=== PATIENT | female | born 1960 | race Hispanic/Latino ===

== ENCOUNTER 2017-07-20 06:53 | Emergency (ER) | payer BC ==
[2017-07-20 07:15] VITALS: BMI 39.1
[2017-07-20] MEDS ORDERED: Albuterol-Ipratrop 3 mg / 0.5 (3 ml) UD IH STA (07:20)
[2017-07-20 07:21] VITALS: TEMP 97.8
--- NOTE | 2017-07-20 07:23 | ED PDOC ---
Arrival/HPI - General Time Seen by Provider: 07/20/17 07:05 - History of Present Illness Narrative History of Present Illness (Text): 07/20/17 07:21 Patient is a 57 y/o F with 2 day history of subjective fever and nonproductive cough. She reports that she woke up this morning and felt like she was wheezing so she came to the ED for further evaluation. Denies chest pain. Denies vomiting, diarrhea, or abdominal pain. Past Medical History - Infectious Disease Hx of Infectious Diseases: None - Tetanus Immunization Tetanus Immunization: Unknown - Cardiac Hx Cardiac Disorders: No - Pulmonary Hx Respiratory Disorders: No - Neurological Hx Neurological Disorder: No - HEENT Hx HEENT Disorder: No - Renal Hx Renal Disorder: No - Endocrine/Metabolic Hx Endocrine Disorders: No - Hematological/Oncological Hx Anemia: Yes - Integumentary Hx Dermatological Disorder: No - Musculoskeletal/Rheumatological Hx Musculoskeletal Disorders: No Hx Falls: No - Gastrointestinal Hx Crohn's Disease: Yes (since 1987) - Genitourinary/Gynecological Hx Genitourinary Disorders: No - Psychiatric Hx Psychophysiologic Disorder: No Hx Depression: No Hx Emotional Abuse: No Hx Physical Abuse: No Hx Substance Use: No - Surgical History Hx Appendectomy: Yes Hx Cholecystectomy: Yes Hx Hysterectomy: Yes - Anesthesia Hx Anesthesia: Yes Hx Anesthesia Reactions: No Hx Malignant Hyperthermia: No - Suicidal Assessment Feels Threatened In Home Enviroment: No Family/Social History Family/Social History: No Known Family HX Smoking Status: Never Smoked Hx Alcohol Use: No Hx Substance Use: No Hx Substance Use Treatment: No Allergies/Home Meds Allergies/Adverse Reactions: Allergies iodine Allergy (Verified 07/20/17 07:15) RASH Home Medications: Home Meds Medication Instructions Recorded Confirmed Mesalamine [Pentasa] 500 mg PO QID 08/01/12 07/20/17 Review of Systems - Review of Systems Constitutional: Fevers (subjective). absent: Fatigue, Weight Change Eyes: absent: Vision Changes ENT: absent: Hearing Changes Respiratory: Cough, Wheezing. absent: SOB, Sputum Cardiovascular: absent: Chest Pain, Palpitations, Edema, Calf Pain, GARCÍA, Orthopnea, Syncope Gastrointestinal: absent: Abdominal Pain, Constipation, Diarrhea, Nausea, Vomiting Genitourinary Female: absent: Dysuria Neurological: absent: Headache, Dizziness, Focal Weakness, Gait Changes, Speech Changes, Facial Droop, Disequilibrium Psychiatric: absent: Anxiety Physical Exam Vital Signs Temp Pulse Resp BP Pulse Ox 07/20/17 09:05 99 H 20 152/94 H 95 07/20/17 07:16 97.8 F 103 H 18 193/83 H 94 L Temperature: Afebrile Blood Pressure: Normal Pulse: Regular Respiratory Rate: Normal Appearance: Positive for: Well-Appearing, Non-Toxic, Comfortable Pain Distress: None Mental Status: Positive for: Alert and Oriented X 3, other (coughing during exam ) - Systems Exam Head: Present: Atraumatic, Normocephalic Pupils: Present: PERRL Extroacular Muscles: Present: EOMI Conjunctiva: Present: Normal Mouth: Present: Moist Mucous Membranes Pharnyx: No: ERYTHEMA, EXUDATE Nose (Internal): Present: Rhinorrhea (clear) Neck: Present: Normal Range of Motion. No: Meningeal Signs Respiratory/Chest: Present: Clear to Auscultation, Good Air Exchange. No: Respiratory Distress, Accessory Muscle Use Cardiovascular: Present: Regular Rate and Rhythm, Normal S1, S2. No: Murmurs Abdomen: No: Tenderness, Distention, Rebound, Guarding Upper Extremity: Present: Normal Inspection Lower Extremity: Present: Normal Inspection Neurological: Present: GCS=15, CN II-XII Intact, Speech Normal Psychiatric: Present: Alert, Oriented x 3 Medical Decision Making ED Course and Treatment: 07/20/17 09:45 Presentation is consistent with uri. Cxray negative. She reports improvement of symptoms after tessalon perles and duonebs. - RAD Interpretation Radiology Orders: 07/20/17 07:20 CHEST TWO VIEWS (PA/LAT) [RAD] Stat - Medication Orders Current Medication Orders: Discontinued Medications Albuterol/Ipratropium (Duoneb 3 Mg/0.5 Mg (3 Ml) Ud) 3 ml IH STAT STA Stop: 07/20/17 07:21 Last Admin: 07/20/17 07:31 Dose: 3 ml Benzonatate (Tessalon Perles) 100 mg PO STAT STA Stop: 07/20/17 08:13 Last Admin: 07/20/17 09:04 Dose: 100 mg Ketorolac Tromethamine (Toradol) 15 mg IM STAT STA Stop: 07/20/17 07:21 Last Admin: 07/20/17 07:30 Dose: 15 mg MAR Pain Assessment Document 07/20/17 07:30 [facility] (Rec: 07/20/17 07:31 [facility] [id number]) Pain Reassessment Is this a pain reassessment? No Sleep Is patient sleeping during reassessment? No Presence of Pain Presence of Pain Yes Pain Scale Used Pain Scale Used Numeric Location Left, Right or Bilateral Bilateral Pain Location Body Site Abdomen Description Description Constant Intensity of Pain at present 7 Pain Behavior Facial Grimacing Aggravating Factors Changing Position Alleviating Factors/Management Position Change Techniques Alleviating Factors Medication IM Administration Charges Document 07/20/17 07:30 [facility] (Rec: 07/20/17 07:31 [facility] [id number]) Injection Site MAR Injection Site Left Deltoid Charges for Administration # of IM Administrations 1 Disposition/Present on Arrival - Present on Arrival Any Indicators Present on Arrival: No History of DVT/PE: No History of Uncontrolled Diabetes: No Urinary Catheter: No History of Decub. Ulcer: No History Surgical Site Infection Following: CABG - Mediastinitis, None - Disposition Have Diagnosis and Disposition been Completed?: Yes Diagnosis: Cough Disposition: HOME/ ROUTINE Disposition Time: 08:47 Patient Plan: Discharge Condition: GOOD Discharge Instructions (ExitCare): Cough in Adults, Viral Upper Respiratory Infection, Adult (DC), Cough, Runny Nose, and the Common Cold (DC) Additional Instructions: Follow-up with PMD within 2 days. Use cough medication as needed. Return to ED if condition worsens Prescriptions: Albuterol HFA [Ventolin HFA 90 mcg/actuation (8 g)] 2 puff IH [id number] #1 puff Benzonatate [Tessalon Perles] 100 mg PO TID PRN #20 sgl PRN Reason: Cough Forms: [employer] (Bengali)
--- NOTE | 2017-07-20 08:16 | RAD ---
HISTORY: cough COMPARISON: No prior. TECHNIQUE: Chest PA and lateral FINDINGS: LUNGS: No active pulmonary disease. PLEURA: No significant pleural effusion identified. No pneumothorax apparent. CARDIOVASCULAR: Normal. OSSEOUS STRUCTURES: No significant abnormalities. VISUALIZED UPPER ABDOMEN: Normal. OTHER FINDINGS: None. IMPRESSION: No active disease.
[2017-07-20 09:06] VITALS: BP 152/94; PULSE 99; RESP 20; O2SAT 95
== END 2017-07-20 09:06 | disposition home or self-care (01) ==
LOC: ED 06:53
DX: R05 Cough (principal)
CPT/HCPCS: 71046; 96372; 99282; J1885

== ENCOUNTER 2017-09-20 10:16 | Inpatient (IN) | payer BC ==
[2017-09-20] MEDS ORDERED: Sodium Chloride 0.9% 1,000 ML IV STA (10:41)
--- NOTE | 2017-09-20 10:47 | ED PDOC ---
Arrival/HPI - General Chief Complaint: Abdominal Pain Time Seen by Provider: 09/20/17 10:41 Historian: Patient - History of Present Illness Narrative History of Present Illness (Text): 09/20/17 10:43 57yo morbidly obese female with pmhx of crohns' present with complaint of right flank pain and associated nausea nad vomiting x weeks. States she was diagnosed with kidney stones last month and was scheduled for lithotripsy, but it was cancelled. states she came to the ED because she couldn't take the pain and for the vomiting. she denies fever, chills, urinary symptoms, diarrhea, constipation , sick contact ,travel, any other complaint. Past Medical History - Provider Review Nursing Documentation Reviewed: Yes - Infectious Disease Hx of Infectious Diseases: None - Tetanus Immunization Tetanus Immunization: Unknown - Cardiac Hx Cardiac Disorders: No - Pulmonary Hx Respiratory Disorders: No - Neurological Hx Neurological Disorder: No - HEENT Hx HEENT Disorder: No - Renal Hx Renal Disorder: Yes Hx Neurogenic Bladder: Yes - Endocrine/Metabolic Hx Endocrine Disorders: No - Hematological/Oncological Hx Blood Disorders: Yes Hx Anemia: Yes - Integumentary Hx Dermatological Disorder: No - Musculoskeletal/Rheumatological Hx Musculoskeletal Disorders: No - Gastrointestinal Hx Gastrointestinal Disorders: Yes Hx Crohn's Disease: Yes - Genitourinary/Gynecological Hx Genitourinary Disorders: No - Psychiatric Hx Psychophysiologic Disorder: No Hx Substance Use: No - Surgical History Hx Appendectomy: Yes Hx Cholecystectomy: Yes Hx Hysterectomy: Yes - Anesthesia Hx Anesthesia: Yes Hx Anesthesia Reactions: No Hx Malignant Hyperthermia: No - Suicidal Assessment Feels Threatened In Home Enviroment: No Family/Social History - Physician Review Nursing Documentation Reviewed: Yes Family/Social History: Unknown Family HX Smoking Status: Never Smoked Hx Alcohol Use: No Hx Substance Use: No Hx Substance Use Treatment: No Allergies/Home Meds Allergies/Adverse Reactions: Allergies iodine Allergy (Verified 09/20/17 10:28) RASH Home Medications: Home Meds Medication Instructions Recorded Confirmed Mesalamine [Pentasa] 500 mg PO QID 08/01/12 09/20/17 Review of Systems - Physician Review All systems were reviewed & negative as marked: Yes - Review of Systems Constitutional: Normal Eyes: Normal ENT: Normal Respiratory: Normal Cardiovascular: Normal Gastrointestinal: Abdominal Pain, Nausea, Vomiting. absent: Constipation, Diarrhea, Hematochezia, Hematemesis Genitourinary Female: Normal Musculoskeletal: Normal Skin: Normal Neurological: Normal Endocrine: Normal Hemo/Lymphatic: Normal Psychiatric: Normal Physical Exam Vital Signs Reviewed: Yes Vital Signs Temp Pulse Resp BP Pulse Ox 09/20/17 18:51 98.0 F 89 19 129/88 99 09/20/17 16:31 98.1 F 82 18 130/87 97 09/20/17 10:39 98.5 F 84 19 137/84 95 Temperature: Afebrile Blood Pressure: Normal Pulse: Regular Respiratory Rate: Normal Appearance: Positive for: Well-Appearing, Non-Toxic, Comfortable Pain Distress: None Mental Status: Positive for: Alert and Oriented X 3 - Systems Exam Head: Present: Atraumatic, Normocephalic Pupils: Present: PERRL Extroacular Muscles: Present: EOMI Conjunctiva: Present: Normal Mouth: Present: Moist Mucous Membranes Neck: Present: Normal Range of Motion Respiratory/Chest: Present: Clear to Auscultation, Good Air Exchange. No: Respiratory Distress, Accessory Muscle Use Cardiovascular: Present: Regular Rate and Rhythm, Normal S1, S2. No: Murmurs Abdomen: Present: Tenderness (Right flank ), Other (Soft). No: Distention, Peritoneal Signs, Rebound, Guarding, McBurney's Point Tender, Rovsing's Sign Present Back: Present: Normal Inspection Upper Extremity: Present: Normal Inspection. No: Cyanosis, Edema Lower Extremity: Present: Normal Inspection. No: Edema Neurological: Present: GCS=15, CN II-XII Intact, Speech Normal Skin: Present: Warm, Dry, Normal Color. No: Rashes Psychiatric: Present: Alert, Oriented x 3, Normal Insight, Normal Concentration Medical Decision Making ED Course and Treatment: 09/20/17 20:27 PT presented for stated history. Her pain was controlled in ED. She was hemodynamically stable. Lab was ordered and reviewed. Abdominal CT IMPRESSION: Stable bilateral nonobstructing renal calculi larger on the right. No evidence of ureteral calculi. . Findings suggestive of ascending and transverse colitis. Hepato splenomegaly again noted. Interval mild increase in the size of the left adrenal nodule since the previous exam Case was DW Dr. Ding and he recommends admission. PT's stone increased from what it was last night and she didn't have hydro, in the previous CT. States he will put a stent tomorrow. Colitis was noted on the CT and Rocephin/glagyl was ordered CXR NAD Result and plan was DW the pt and she agreed. - Lab Interpretations Lab Results: 09/20/17 11:34 09/20/17 13:30 Lab Results 09/20/17 13:30: PT 14.5, INR 1.26, APTT 30.8 09/20/17 13:30: Sodium 143, Potassium 3.6, Chloride 105, Carbon Dioxide 25, Anion Gap 17, BUN 8, Creatinine 0.9, Est GFR ( Amer) > 60, Est GFR (Non- Af Amer) > 60, Random Glucose 100, Calcium 9.4, Magnesium 1.8, Total Bilirubin 1.4 H, AST 46 H, ALT 39, Alkaline Phosphatase 118, Total Protein 9.1 H, Albumin 4.5, Globulin 4.6, Albumin/Globulin Ratio 1.0 L, Lipase 90 09/20/17 11:34: WBC 10.6, RBC 6.07, Hgb 11.2 L, Hct 35.1 L, MCV 57.8 L, MCH 18.5 L, MCHC 31.9, RDW 18.2 H, Plt Count 216, Gran % 74.6 H, Lymph % (Auto) 18.6 L, [place] % (Auto) 5.6, Eos % (Auto) 0.9 L, Baso % (Auto) 0.3, Gran # 7.91 H , Lymph # (Auto) 2.0, [place] # (Auto) 0.6, Eos # (Auto) 0.1, Baso # (Auto) 0.03 09/20/17 10:50: Urine Color Yellow, Urine Appearance Clear, Urine pH 6.5, Ur Specific [place] 1.020, Urine Protein 100 H, Urine Glucose (UA) Negative, Urine Ketones Negative, Urine Blood Large H, Urine Nitrate Negative, Urine Bilirubin Negative, Urine Urobilinogen 0.2, Ur Leukocyte Esterase Small H, Urine RBC 20 - 25, Urine WBC 5 - 10, Ur Epithelial Cells 4 - 5, Urine Bacteria Mod, Hyaline Casts 0 - 2, Coarse Granular Casts Trace H, Urine Other [place]yeast - RAD Interpretation Radiology Orders: 09/20/17 10:41 ABD & PELVIS W/O PO OR IV CONT [CT] Stat - Medication Orders Current Medication Orders: Sodium Chloride (Sodium Chloride 0.9%) 1,000 mls @ 75 mls/hr IV .[id number] LIZ Stop: 09/21/17 19:54 Last Admin: 09/20/17 18:39 Dose: 75 mls/hr eMAR Start Stop Document 09/20/17 18:39 [email or web address] (Rec: 09/20/17 18:39 [email or web address] [id number]) Intravenous Solution Start Date 09/20/17 Start Time 18:39 End Date 09/20/17 Mesalamine (Pentasa) 500 mg PO QID LIZ Morphine Sulfate (Morphine) 4 mg IVP Q4H PRN PRN Reason: Pain, severe (8-10) Oxycodone/Acetaminophen (Percocet 5/325 Mg Tab) 1 tab PO Q4 PRN PRN Reason: Pain, moderate (4-7) Stop: 09/23/17 20:01 Discontinued Medications Sodium Chloride (Sodium Chloride 0.9%) 1,000 mls @ 1,000 mls/hr IV .Q1H STA Stop: 09/20/17 11:40 Last Admin: 09/20/17 11:36 Dose: 1,000 mls/hr eMAR Start Stop Document 09/20/17 11:36 [email or web address] (Rec: 09/20/17 11:37 [email or web address] [id number]) Intravenous Solution Start Date 09/20/17 Start Time 11:36 End Date 09/20/17 Metronidazole (Flagyl) 500 mg in 100 mls @ 100 mls/hr IVPB STAT STA PRN Reason: Protocol Stop: 09/20/17 17:17 Last Admin: 09/20/17 18:39 Dose: 100 mls/hr eMAR Start Stop Document 09/20/17 18:39 [email or web address] (Rec: 09/20/17 18:40 [email or web address] [id number]) Intravenous Solution Start Date 09/20/17 Start Time 18:40 Ceftriaxone Sodium (Rocephin 1 Gram Ivpb) 1 gm in 100 mls @ 200 mls/hr IVPB STAT STA PRN Reason: Protocol Stop: 09/20/17 16:46 Last Admin: 09/20/17 16:40 Dose: 200 mls/hr eMAR Start Stop Document 09/20/17 16:40 [email or web address] (Rec: 09/20/17 18:38 [email or web address] [id number]) Intravenous Solution Start Date 09/20/17 Start Time 18:38 End Date 09/20/17 Ketorolac Tromethamine (Toradol) 30 mg IVP STAT STA Stop: 09/20/17 10:42 Last Admin: 09/20/17 11:35 Dose: 30 mg MAR Pain Assessment Document 09/20/17 11:35 [email or web address] (Rec: 09/20/17 11:35 [email or web address] [id number]) Pain Reassessment Is this a pain reassessment? No Sleep Is patient sleeping during reassessment? No Presence of Pain Presence of Pain Yes Pain Scale Used Pain Scale Used Numeric Location Left, Right or Bilateral Right Upper or Lower Lower Pain Location Body Site Back Description Description Constant Intensity of Pain at present 5 Pain Behavior Facial Grimacing Aggravating Factors Changing Position Alleviating Factors/Management Position Change Techniques Alleviating Factors Medication IVP Administration Document 09/20/17 11:35 [email or web address] (Rec: 09/20/17 11:35 [email or web address] [id number]) Charges for Administration # of IVP Administrations 1 Ondansetron HCl (Zofran Inj) 4 mg IVP STAT STA Stop: 09/20/17 10:42 Last Admin: 09/20/17 11:35 Dose: 4 mg IVP Administration Document 09/20/17 11:35 [email or web address] (Rec: 09/20/17 11:36 [email or web address] [id number]) Charges for Administration # of IVP Administrations 1 Disposition/Present on Arrival - Present on Arrival Any Indicators Present on Arrival: No History of DVT/PE: No History of Uncontrolled Diabetes: No Urinary Catheter: No History of Decub. Ulcer: No History Surgical Site Infection Following: None - Disposition Have Diagnosis and Disposition been Completed?: Yes Diagnosis: Renal stone, Colitis, Hydronephrosis Disposition: HOSPITALIZED Disposition Time: 15:40 Patient Plan: Admission Patient Problems: Current Active Problems Problem Status Onset Colitis Acute Hydronephrosis Acute Renal stone Acute Condition: STABLE
[2017-09-20 11:05] LABS: PH,URINE 6.5 (4.7-8.0); URINE BILIRUBIN NEGATIVE (NEGATIVE); URINE BLOOD LARGE (NEGATIVE); URINE GLUCOSE (UA) NEGATIVE (NEGATIVE); URINE LEUKOCYTE ESTERASE SMALL Leu/uL (NEGATIVE); URINE PROTEIN 100 mg/dL (<30 mg/dL); URINE UROBILINOGEN 0.2 E.U./dL (<1 E.U./dL)
[2017-09-20 11:07] LABS: URINE APPEARANCE CLEAR (CLEAR); URINE COLOR YELLOW (YELLOW)
[2017-09-20 11:17] LABS: URINE RBC 20 - 25 /hpf (0-2)
[2017-09-20 11:18] LABS: URINE BACTERIA MOD (NEG)
[2017-09-20 11:19] LABS: URINE COARSE GRANULAR CAST TRACE /hpf (0-2); URINE HYALINE CAST 0 - 2 /hpf
--- NOTE | 2017-09-20 11:29 | CT ---
Date of service: 09/20/2017 PROCEDURE: CT Abdomen and Pelvis without intravenous contrast HISTORY: Right flank pain COMPARISON: Comparison is made to the previous study dated 02/28/2017 TECHNIQUE: Axial and reformatted coronal and sagittal CT images of the abdomen and pelvis were obtained without IV or oral contrast administration.. Contrast dose: 0 Radiation dose: Total exam DLP = 1592.57 mGy-cm. This CT exam was performed using one or more of the following dose reduction techniques: Automated exposure control, adjustment of the mA and/or kV according to patient size, and/or use of iterative reconstruction technique. FINDINGS: LOWER THORAX: Unremarkable. LIVER: Hepatomegaly is also noted. . No gross lesion or ductal dilatation. GALLBLADDER AND BILE DUCTS: Status post cholecystectomy PANCREAS: Unremarkable. No gross lesion or ductal dilatation. SPLEEN: Hepatomegaly is noted with the spleen measures 16.3 centimeter in the longitudinal diameter and 11.9 centimeter in the transverse diameter ADRENALS: There is left adrenal solid heterogeneous nodule measures 16.6 millimeter in the transverse diameter was measured 14 millimeter in the previous exam. This nodule measures low CT density with 4 Hounsfield units. The right adrenal gland is unremarkable. KIDNEYS AND URETERS: Again seen is right renal calculi measures 9 millimeter. There is mild right hydronephrosis and proximal hydroureter without evidence of obstructing stone in the right ureter. There are bilateral small nonobstructing renal calculi. The largest calculus in the left kidney measures 3 millimeters seen in the mid to upper pole. No evidence of left hydronephrosis or hydroureter. VASCULATURE: Unremarkable. No aortic aneurysm. BOWEL: There is ascending and transverse colon wall thickening suspicious for colitis. No evidence of high-grade bowel obstruction. APPENDIX: No evidence of appendicitis. PERITONEUM: Unremarkable. No free fluid. No free air. LYMPH NODES: Unremarkable. No enlarged lymph nodes. BLADDER: Unremarkable. REPRODUCTIVE: Patient likely status post prior hysterectomy. BONES: No acute fracture. OTHER FINDINGS: None. IMPRESSION: Stable bilateral nonobstructing renal calculi larger on the right. No evidence of ureteral calculi. . Findings suggestive of ascending and transverse colitis. Hepato splenomegaly again noted. Interval mild increase in the size of the left adrenal nodule since the previous exam
[2017-09-20 11:45] LABS: BASO # 0.03 K/mm3 (0.0-2.0); BASO % 0.3 % (0.0-3.0); EOS # 0.1 (0.0-0.7); EOS % 0.9 % (1.5-5.0); GRAN # 7.91 (1.4-6.5); GRAN % 74.6 % (50.0-68.0); HEMOGLOBIN 11.2 g/dL (12.0-16.0); LYMPH % 18.6 % (22.0-35.0); MEAN CELL VOLUME 57.8 fl (80.0-105.0); MEAN CORPUSCULAR HEMOGLOBIN 18.5 pg (25.0-35.0); MEAN CORPUSCULAR HGB CONC 31.9 g/dl (31.0-37.0); MONO # 0.6 (0.1-0.6); MONO % 5.6 % (1.0-6.0); PLATELET COUNT 216 10^3/uL (120.0-450.0); RBC 6.07 10^6/uL (3.5-6.1); RED CELL DISTRIBUTION WIDTH 18.2 % (11.5-14.5); WHITE BLOOD COUNT 10.6 10^3/ul (4.5-11.0)
[2017-09-20 13:47] LABS: INR 1.26
[2017-09-20 13:56] LABS: ALBUMIN 4.5 g/dL (3.0-4.8); ALT/SGPT 39 U/L (7-56); AST/SGOT 46 U/L (14-36); BLOOD UREA NITROGEN 8 mg/dL (7-21); CALCIUM 9.4 mg/dL (8.4-10.5); GFR AFRICAN-AMERICAN > 60; GFR NON-AFRICAN AMERICAN > 60; LIPASE 90 U/L (23-300)
--- NOTE | 2017-09-20 15:57 | RAD ---
Date of service: 09/20/2017 HISTORY: admission COMPARISON: 07/20/2017 FINDINGS: LUNGS: No active pulmonary disease. PLEURA: No significant pleural effusion identified, no pneumothorax apparent. CARDIOVASCULAR: Normal. OSSEOUS STRUCTURES: No significant abnormalities. VISUALIZED UPPER ABDOMEN: Normal. OTHER FINDINGS: None. IMPRESSION: No active disease.
[2017-09-20] MEDS ORDERED: cefTRIAXone 1 gm 1 GM/100 ML BAG IVPB STA (16:17)
[2017-09-20] MEDS ORDERED: metroNIDAZOLE IV 500 mg/100 ml 500 MG/100 ML BAG IVPB STA (16:18)
[2017-09-20] MEDS ORDERED: Morphine 2 mg/2 mL syringe IVP PRN (17:14)
[2017-09-20] MEDS ORDERED: Oxycodone/Acetaminophen 5/325 mg Tab PO PRN (17:15)
[2017-09-20] MEDS ORDERED: Sodium Chloride 0.9% 1,000 ML IV SCH (17:15)
[2017-09-20] MEDS ORDERED: Morphine 4 mg/ml ISec IVP PRN (17:17)
[2017-09-20] MEDS: Mesalamine ER Cap 500 MG PO SCH (22:30)
[2017-09-21 03:26] VITALS: BMI 45.7
[2017-09-21] MEDS ORDERED: Iohexol 240 (50 ml) ONE (07:21)
[2017-09-21] MEDS ORDERED: Lidocaine 2% Jelly (Uro-Jet) ONE (07:22)
[2017-09-21] MEDS ORDERED: cefTRIAXone (Rocephin) 1 gm Inj ONE (07:22)
[2017-09-21] MEDS ORDERED: Propofol 10 mg/ml Inj (20 ML) ONE (08:01)
[2017-09-21] MEDS ORDERED: Etomidate 20 mg/10ml Inj IV ONE (08:01)
[2017-09-21] MEDS ORDERED: Succinylcholine 200 mg/10 ml Inj IV ONE (08:01)
[2017-09-21] MEDS ORDERED: Midazolam 2 MG/2 ML VIAL ONE (09:05)
[2017-09-21] MEDS ORDERED: cefTRIAXone 1 GM in NS 100 ML BAG IVPB ONE (09:29)
--- NOTE | 2017-09-21 09:44 | CARD ---
APPROVED REPORT Date of service: 09/21/2017 EKG Measurement Heart [id number] <Conclusion> Normal sinus rhythm Cannot rule out Anterior infarct, age undetermined Abnormal ECG
[2017-09-21] MEDS ORDERED: HYDROmorphone 0.5 mg/0.5 ml ISec IVP PRN (09:47)
[2017-09-21] MEDS ORDERED: Sodium Chloride 0.9% 1,000 ML IV SCH (10:00)
--- NOTE | 2017-09-21 11:35 | RAD ---
Date of service: 09/21/2017 PROCEDURE: Retrograde pyelogram HISTORY: RIGHT NEPHROURETERAL STENT COMPARISON: TECHNIQUE: 14.9 seconds of fluoro time. Cumulative dose 7.12 mGy. 10 images were submitted FINDINGS: The study shows opacification of the right ureter and collecting system with placement of a wire and placement of a right ureteral stent. IMPRESSION: As above
--- NOTE | 2017-09-21 11:37 | HP ---
Copied To: Ivan Guido MD Attending MD: Ivan Guido MD CHIEF COMPLAINT AND HISTORY OF PRESENT ILLNESS: This is a 57-year-old female who is coming into the hospital because of right-sided flank pain and back pain. The patient had a history of kidney stones and started having worsening pain. She has been seeing Dr. Ding for her kidney stones and was to get lithotripsy. She says the pain became worse. She says the pain was 6/10. She had taken pain medications and had vomiting. She denied any fevers or chills. No dysuria or frequency. No nocturia. No weakness in the arms or in the legs. REVIEW OF SYSTEMS: All other review of symptoms are within normal limits except what was mentioned. She says the Toradol did help her pain. ALLERGIES: TO IODINE. HOME MEDICATIONS: Mesalamine PAST MEDICAL HISTORY: Crohn disease. SOCIAL HISTORY: She has a history of smoking. She denies alcohol or drugs. PAST SURGICAL HISTORY: Hysterectomy, cholecystectomy, appendectomy. FAMILY HISTORY: Noncontributory. PHYSICAL EXAMINATION: VITAL SIGNS: Temperature is 97.5, pulse of 86, blood pressure 139/85, respirations 18, O2 saturation 92%. GENERAL: The patient lying in bed, uncomfortable, and in no acute distress. HEENT: Atraumatic and normocephalic. Anicteric sclerae. Moist mucosa. [place] conjunctivae. No oral lesions. NECK: No JVD, anterior and posterior adenopathy, thyromegaly, or bruits. CARDIOVASCULAR: S1 and S2 regular. No murmur, rubs, or gallop. LUNGS: Clear to auscultation bilaterally. No wheezes, rales, or rhonchi. ABDOMEN: Bowel sounds are positive. Soft, nontender and nondistended. No hepatosplenomegaly. No rebound and no guarding EXTREMITIES: No cyanosis, clubbing, or edema. NEUROLOGIC: No facial asymmetry. Tongue is midline. No uvula deviation. Power is 5/5 upper extremity and lower extremity. Sensation intact in upper extremity and lower extremity. PSYCHIATRIC: She is awake, alert and oriented x3. No anxiety or depression. She has normal affect. GENITOURINARY: No CVA tenderness. VASCULAR: 2+ pulses in the carotid pulses and pedal pulses. SKIN: No erythema or nodules SPINE: Shows normal curvature. LABORATORY DATA: White count of 10.6, hemoglobin 11.2, platelet count is 216. INR is 1.26. Sodium is 143, potassium 3.6, creatinine is 0.9. Urine shows ketones are negative, blood is large, nitrites are negative, bilirubin is negative, rbc's 20-25. Chest x-ray done shows no active disease. EKG is pending. CT of the abdomen and pelvis done shows stable bilateral nonobstructing renal calculi. There is right renal calculi that measures 9 mm with mild right-sided hydronephrosis and proximal hydroureter. ASSESSMENT: 1. Right renal calculi 9 mm with mild right-sided hydronephrosis. 2. History of Crohn disease. 3. Obese with a body mass index of 45. 4. Left adrenal nodule. PLAN: The patient is currently comfortable. She was given Toradol. She said the pain is resolved. The patient's CAT scan shows kidney stones. She does have mild changes in her colon on CAT scan, this is most likely due to her Crohn disease. She does see Dr. Aguilar for this. She is on mesalamine. The patient is on IV fluids with normal saline. Dr. Ding is going to be placing a stent in her this morning, she may be discharged if she is cleared by Dr. Ding. She will follow up for possible lithotripsy as an outpatient. Ivan Guido MD
[2017-09-21] MEDS: Mesalamine ER Cap 500 MG PO SCH ×4 (12:01→22:03)
[2017-09-21 17:28] VITALS: BP 139/80; PULSE 84; RESP 19; TEMP 98.3; O2SAT 95
--- NOTE | 2017-09-21 22:19 | PN ---
Copied To: Moy Ding MD Attending MD: Moy Ding MD DATE: 09/21/2017 POSTOPERATIVE PROGRESS NOTE SUBJECTIVE: The patient remains afebrile, temperature 98.3, pulse 84, BP 139/80, respirations 19. She underwent placement of a ureteral stent for a right renal pelvic calculus with right hydronephrosis. Plan is if the patient's pain is controlled, she can be discharged home on oral antibiotics and oral analgesics. The patient will call my office for followup. She had already been scheduled for an outpatient shockwave lithotripsy and this can be now rescheduled. Thank you for allowing me to participate the care of this patient. Moy Ding MD
--- NOTE | 2017-09-21 22:23 | OP ---
Copied To: Moy Ding MD Attending MD: Moy Ding MD PROCEDURE DATE: 09/21/2017 PREOPERATIVE DIAGNOSES: Right hydronephrosis, right renal calculi. POSTOPERATIVE DIAGNOSES: Right hydronephrosis, right renal calculi. PROCEDURE: A cystoscopy, right retrograde pyelogram, insertion of a right ureteral stent. ATTENDING SURGEON: Moy Ding MD. ANESTHESIA: General. SPECIMENS: There were none. DRAINS: A 6 x 24 right ureteral stent. COMPLICATIONS: There were none. OPERATIVE FINDINGS: After informed consent was obtained, the patient was taken to the operating room, placed on the operating table. Anesthesia was administered. The patient was placed in the dorsal lithotomy position and prepped and draped in the usual sterile fashion. The patient received IV antibiotics prior to start of the procedure. A 22-Micronesian cystoscope was passed into the patient's bladder under direct vision and a full survey inspection was performed. There were no stones, tumors or foreign bodies of the bladder noted. Both ureteral orifices were visualized and appeared within normal limits. At this point, a 5-Micronesian open-ended ureteral catheter was introduced through the cystoscope and guided into the right ureteral orifice. When inside the orifice, a retrograde pyelogram was performed by instilling contrast through the open-ended catheter into the right ureter during real-time fluoroscopy. On fluoroscopy, there was a calcific density noted in the area of the right kidney. On the retrograde pyelogram, this appeared to be in the renal pelvis. It appeared to have been pushed back into the kidney during the retrograde. There was mild fullness of the upper collecting system noted. At this point, a sensor wire was obtained. The sensor wire was then passed through the open-ended ureteral catheter and guided up the ureter under fluoroscopic guidance until it coiled in the upper collecting system. At this point, the open-ended ureteral catheter was withdrawn and a 6 x 24 ureteral stent was obtained. The stent was then passed over the wire through the cystoscope and into the right ureteral orifice. The stent was advanced proximally under direct and fluoroscopic guidance until it was in proper position. When in proper position, the guidewire was then removed. A coil was seen in the upper collecting system on fluoroscopy. A coil was seen in the bladder on cystoscopy. At this point, the procedure was completed, the bladder was drained. The cystoscope was removed. The patient tolerated the procedure well. She was returned to the supine position and taken to the recovery room awake and in stable condition. Moy Ding MD
[2017-09-22] MEDS: Mesalamine ER Cap 500 MG PO SCH (09:46)
[2017-09-22 13:27] LABS: PARTIAL THROMBOPLASTIN TIME 30.8 Seconds (25.1-36.5); PROTHROMBIN TIME 14.5 SECONDS (9.4-12.5)
--- NOTE | 2017-09-23 17:29 | DS ---
Copied To: Ivan Guido MD Attending MD: Ivan Guido MD HISTORY OF PRESENT ILLNESS: This is a 57-year-old female who had come to the hospital, was found to have right-sided calculi that was 9 mm. She had a stent that was placed by Dr. Ding. She had improvement of her symptoms. She denies any pain. She did not require narcotics or pain medication. She is going to be discharged home to follow as an outpatient. PHYSICAL EXAMINATION: VITAL SIGNS: Her temperature is 98.3, pulse of 84, blood pressure is 139/80, respirations 19, O2 saturation 95%. GENERAL: The patient is lying in bed, flat, comfortable. HEENT: No oral lesion. Anicteric sclerae. Moist mucosa. NECK: No JVD, adenopathy, or thyromegaly. CARDIOVASCULAR: S1 and S2, regular. No murmurs, rubs, or gallops. LUNGS: Clear to auscultation bilaterally. No wheeze, rales, or rhonchi. ABDOMEN: Bowel sounds are positive. Soft, nontender and nondistended. EXTREMITIES: No cyanosis, clubbing or edema. ASSESSMENT: 1. Right-sided renal calculi 9 mm with mild right-sided hydronephrosis, status post stent. 2. History of Crohn disease. 3. Obesity with a body mass index of 45. 4. Left . PLAN: The patient is currently comfortable. She is going to be discharged and we placed her on NSAIDs over the counter. She has a followup with Urology. She is going to be getting lithotripsy for her kidney stones. Condition is stable. Activities, increase as tolerated. Ivan Guido MD
== END 2017-09-22 11:00 | disposition home or self-care (01) | DRG 694 ==
LOC: ED 10:16 → ERH 15:40 → 3RNO 20:44
PROVIDERS: ADMIT Internal Medicine Nephrology; ATTEND Internal Medicine Nephrology
PROC: BT1DZZZ Fluoroscopy of Right Kidney, Ureter and Bladder (ICD-10-PCS; 2017-09-21)
PROC: 0T768DZ Dilation of Right Ureter with Intraluminal Device, Via Natural or Artificial Opening Endoscopic (ICD-10-PCS; principal; 2017-09-21 08:30)
DX: N13.2 Hydronephrosis with renal and ureteral calculous obstruction (principal); K50.90 Crohn's disease, unspecified, without complications; Z68.42 Body mass index [BMI] 45.0-49.9, adult; N31.9 Neuromuscular dysfunction of bladder, unspecified; E66.01 Morbid (severe) obesity due to excess calories; E27.8 Other specified disorders of adrenal gland; Z87.442 Personal history of urinary calculi; Z87.891 Personal history of nicotine dependence; Z90.49 Acquired absence of other specified parts of digestive tract; Z90.710 Acquired absence of both cervix and uterus

== ENCOUNTER 2018-07-23 12:26 | Observation (INO) | payer BC ==
--- NOTE | 2018-07-23 12:53 | ED PDOC ---
Arrival/HPI - General Chief Complaint: Back Pain Time Seen by Provider: 07/23/18 12:39 Historian: Patient - History of Present Illness Narrative History of Present Illness (Text): 58 yr old female w/ hx of nephrolithasis w/ lithotripsy, crohns on mesalamine, hysterectomy, bowel resection, appendectomy p/w R sided flank pain. Pt notes R sided flank pain since yesterday, sharp stabbing and throbbing, with intermittent radiation into the groin. No fall or trauma. No urinary complaints. No vaginal d/c. She notes it feels exactly alike her previous kidney stone type pain and does not feel like crohns flare. No abdominal pain. No Nausea or vomiting. No dark or bloody stool. No constipation or diarrhea. No fever, chills or night sweats. She notes taking tylenol earlier without much relief. No hx of IVDU. No midline back pain. No other complaints Uro: Dr. Ding GI: Dr. Aguilar PMD: Dr. Virk Past Medical History - Provider Review Nursing Documentation Reviewed: Yes - Infectious Disease Hx of Infectious Diseases: None - Tetanus Immunization Tetanus Immunization: Unknown - Cardiac Hx Cardiac Disorders: No - Pulmonary Hx Respiratory Disorders: No - Neurological Hx Neurological Disorder: No - HEENT Hx HEENT Disorder: No - Renal Hx Renal Disorder: Yes Hx Kidney Stones: Yes Hx Neurogenic Bladder: Yes - Endocrine/Metabolic Hx Endocrine Disorders: No - Hematological/Oncological Hx Blood Transfusions: No - Integumentary Hx Dermatological Disorder: No - Musculoskeletal/Rheumatological Hx Musculoskeletal Disorders: No Hx Falls: No - Gastrointestinal Hx Gastrointestinal Disorders: Yes Hx Crohn's Disease: Yes - Genitourinary/Gynecological Hx Genitourinary Disorders: No - Psychiatric Hx Psychophysiologic Disorder: No Hx Substance Use: No - Surgical History Hx Appendectomy: Yes Hx Cholecystectomy: Yes Hx Hysterectomy: Yes Other/Comment: Small bowel resection - Anesthesia Hx Anesthesia Reactions: No Hx Malignant Hyperthermia: No - Suicidal Assessment Feels Threatened In Home Enviroment: No Family/Social History - Physician Review Nursing Documentation Reviewed: Yes Family/Social History: Unknown Family HX Smoking Status: Never Smoked Hx Alcohol Use: No Hx Substance Use: No Hx Substance Use Treatment: No Allergies/Home Meds Allergies/Adverse Reactions: Allergies No Known Allergies Allergy (Verified 07/23/18 12:38) Home Medications: Home Meds Medication Instructions Recorded Confirmed Mesalamine [Pentasa] 500 mg PO QID 08/01/12 09/20/17 Review of Systems - Review of Systems Constitutional: absent: Fatigue, Weight Change, Fevers Eyes: absent: Vision Changes, Photophobia ENT: absent: Hearing Changes, Tinnitus Respiratory: absent: SOB, Cough, Sputum, Wheezing Cardiovascular: absent: Chest Pain, Palpitations, Edema Gastrointestinal: absent: Abdominal Pain, Stool Changes, Nausea, Vomiting, Appetite Changes Genitourinary Female: absent: Dysuria, Frequency, Hematuria Musculoskeletal: Back Pain (Flank pain). absent: Arthralgias, Neck Pain Skin: absent: Rash, Pruritis, Skin Lesions Neurological: absent: Headache, Dizziness, Focal Weakness Endocrine: absent: Diaphoresis, Polyuria Hemo/Lymphatic: absent: Adenopathy, Easy Bleeding Physical Exam Vital Signs Reviewed: Yes Vital Signs Temp Pulse Resp BP Pulse Ox 07/23/18 12:35 97.8 F 86 18 153/103 H 97 Temperature: Afebrile Blood Pressure: Normal Pulse: Regular Respiratory Rate: Normal Appearance: Positive for: Well-Appearing, Non-Toxic, Comfortable Pain Distress: None Mental Status: Positive for: Alert and Oriented X 3 - Systems Exam Head: Present: Atraumatic, Normocephalic Pupils: Present: PERRL Extroacular Muscles: Present: EOMI Conjunctiva: Present: Normal Ears: Present: Normal Mouth: Present: Moist Mucous Membranes Pharnyx: Present: Normal. No: ERYTHEMA, EXUDATE Neck: Present: Normal Range of Motion. No: Meningeal Signs, MIDLINE TENDERNESS Respiratory/Chest: Present: Clear to Auscultation, Good Air Exchange. No: Respiratory Distress, Accessory Muscle Use Cardiovascular: Present: Regular Rate and Rhythm, Normal S1, S2. No: Murmurs Abdomen: Present: Normal Bowel Sounds. No: Tenderness, Distention, Peritoneal Signs, Rebound, Guarding, Rovsing's Sign Present, Hernias Back: Present: Other (R sided flank TTP). No: CVA Tenderness, Midline Tenderness Upper Extremity: Present: Normal Inspection. No: Cyanosis, Edema Lower Extremity: Present: Normal Inspection. No: Edema Neurological: Present: GCS=15, CN II-XII Intact, Speech Normal Skin: Present: Warm, Dry, Normal Color. No: Rashes Psychiatric: Present: Alert, Oriented x 3, Normal Insight, Normal Concentration Medical Decision Making ED Course and Treatment: 58 yr old female w/ hx of nephrolithasis w/ lithotripsy, crohns on mesalamine, hysterectomy, bowel resection, appendectomy p/w R sided flank pain. Likely kidney stone pain. No enuresis / encoparesis or saddle anesthesia. No fall or trauma. No midline pain or tenderness. No urinary complaints. No fall or trauma. No Nausea / vomiting / constipation /diarrhea or dark or bloody stool. No CP or SOB. Abd non-ttp. Likely kidney stone pain, however given hx of crohns, will seek CT-IV 07/23/18 13:55 Hematuria, mild WBC in urine. labs otherwise largely unremarkable pt in NAD, pending CT 07/23/2018 14:50 Abd/Pelvis CT IMPRESSION: Obstructive 10 x 6 mm right renal pelvis calculus causing mild right hydronephrosis. Mild enhancement of the right renal collecting system may be reactive. Superimposed infection cannot be excluded. Clinical correlation is recommended. Additional nonobstructive bilateral renal calculi. Dictator: Orestes Spencer MD 07/23/18 15:18 R sided kidney stone 10x6mm, >6mm, pt notes pain improved, but continued pain, pt took percocet earlier Rocephin ordered for mild UTI Appreciate consult w/ Dr. Ding: to obs, he will see pt Appreciate consult w/ Dr. Hanks: to obs to his service pt in NAD. agreeable to plan. - Lab Interpretations I have reviewed the lab results: Yes - RAD Interpretation Radiology Orders: 07/23/18 12:48 ABD & PELVIS IV CONTRAST ONLY [CT] Stat - Medication Orders Current Medication Orders: Sodium Chloride (Sodium Chloride 0.9%) 1,000 mls @ 250 mls/hr IV .Q4H LIZ Ketorolac Tromethamine (Toradol) 30 mg IVP STAT STA Stop: 07/23/18 12:49 Disposition/Present on Arrival - Present on Arrival Any Indicators Present on Arrival: No History of DVT/PE: No History of Uncontrolled Diabetes: No Urinary Catheter: No History of Decub. Ulcer: No History Surgical Site Infection Following: None - Disposition Have Diagnosis and Disposition been Completed?: Yes Diagnosis: Renal stone Disposition Time: 15:20 Condition: STABLE Discharge Instructions (ExitCare): Kidney Stones in Adults Referrals: Moises Virk MD [Primary Care Provider] - Follow up with primary Forms: [facility] (Pashto)
[2018-07-23] MEDS: Sodium Chloride 0.9% 1,000 ML IV SCH ×2 (13:04→22:49)
[2018-07-23 13:09] LABS: BASO # 0.05 K/mm3 (0.0-2.0); BASO % 0.5 % (0.0-3.0); EOS # 0.1 (0.0-0.7); EOS % 1.4 % (1.5-5.0); HEMOGLOBIN 10.7 g/dL (12.0-16.0); LYMPH # 2.8 (1.2-3.4); LYMPH % 29.4 % (22.0-35.0); MEAN CORPUSCULAR HEMOGLOBIN 18.2 pg (25.0-35.0); MEAN CORPUSCULAR HGB CONC 31.8 g/dl (31.0-37.0); MONO # 0.6 (0.1-0.6); MONO % 6.4 % (1.0-6.0); PLATELET COUNT 151 10^3/uL (120.0-450.0); RBC 5.89 10^6/uL (3.5-6.1); RED CELL DISTRIBUTION WIDTH 16.9 % (11.5-14.5); WHITE BLOOD COUNT 9.6 10^3/uL (4.5-11.0)
[2018-07-23 13:10] LABS: URINE BILIRUBIN NEGATIVE (NEGATIVE); URINE BLOOD LARGE (NEGATIVE); URINE GLUCOSE (UA) NEGATIVE (NEGATIVE); URINE LEUKOCYTE ESTERASE SMALL Leu/uL (NEGATIVE); URINE PROTEIN TRACE mg/dL (<30 mg/dL); URINE UROBILINOGEN 0.2 E.U./dL (<1 E.U./dL)
[2018-07-23 13:11] LABS: URINE APPEARANCE CLEAR (CLEAR); URINE COLOR YELLOW (YELLOW)
[2018-07-23 13:13] LABS: URINE AMORPHOUS SEDIMENT FEW /hpf; URINE BACTERIA MANY /hpf; URINE RBC 25 - 30 /hpf (0-2)
[2018-07-23 13:25] LABS: ALBUMIN 4.1 g/dL (3.0-4.8); ALT/SGPT 38 U/L (7-56); AST/SGOT 55 U/L (14-36); BLOOD UREA NITROGEN 10 mg/dL (7-21); CALCIUM 9.1 mg/dL (8.4-10.5); GFR NON-AFRICAN AMERICAN > 60; LIPASE 115 U/L (23-300)
[2018-07-23] MEDS ORDERED: Iohexol 350 MG/100 ML VIAL ONE (14:14)
--- NOTE | 2018-07-23 14:54 | CT ---
Date of service: 07/23/2018 PROCEDURE: CT Abdomen and Pelvis with contrast HISTORY: R sided flank pain, feels kidney stone, hx crohn COMPARISON: CT scan of the abdomen pelvis dated 09/20/2017 TECHNIQUE: Contrast dose: 130 mL Omnipaque 350 Radiation dose: Total exam DLP = 1174.44 mGy-cm. This CT exam was performed using one or more of the following dose reduction techniques: Automated exposure control, adjustment of the mA and/or kV according to patient size, and/or use of iterative reconstruction technique. FINDINGS: LOWER THORAX: Unremarkable. LIVER: Diffuse hepatic steatosis. No gross lesion or ductal dilatation. GALLBLADDER AND BILE DUCTS: Prior cholecystectomy with surgical clips in place. Expected prominence of the CBD. PANCREAS: Unremarkable. No gross lesion or ductal dilatation. SPLEEN: Unremarkable. ADRENALS: 1.8 x 1.8 cm left adrenal adenoma. No mass. KIDNEYS AND URETERS: 10 x 6 mm obstructive right renal pelvis calculus causing mild right hydronephrosis. 9 x 8 mm nonobstructive right lower pole calculus. Mild enhancement of the collecting system. Punctate nonobstructive left upper pole calculus. No left hydronephrosis. No solid mass. VASCULATURE: Unremarkable. No aortic aneurysm. No aortic atherosclerotic calcification or mural plaque present. BOWEL: Prominent submucosal seen throughout the colon. No obstruction. No gross mural thickening. APPENDIX: No findings to suggest acute appendicitis. PERITONEUM: Unremarkable. No free fluid. No free air. LYMPH NODES: Nonspecific prominent subcentimeter right retroperitoneal and aortocaval lymph nodes. No enlarged lymph nodes. BLADDER: Unremarkable. REPRODUCTIVE: Unremarkable. BONES: No acute fracture. OTHER FINDINGS: None. IMPRESSION: Obstructive 10 x 6 mm right renal pelvis calculus causing mild right hydronephrosis. Mild enhancement of the right renal collecting system may be reactive. Superimposed infection cannot be excluded. Clinical correlation is recommended. Additional nonobstructive bilateral renal calculi.
[2018-07-23] MEDS ORDERED: cefTRIAXone 1 gm 1 GM/100 ML BAG IVPB ONE (14:58)
--- NOTE | 2018-07-23 15:52 | CP.PCM.HP ---
<OsminJames - Last Filed: 07/23/18 16:17> History of Present Illness - History of Present Illness History of Present Illness: James Solorio, PGY-1 H&P Medicine Note for Dr. Hanks: CC: R sided flank pain Pt is a 58 yo F with pmhx of nephrolithiasis w/ lithotripsy, Chrons on mesalamine, hysterectomy, bowel resection and appendectomy who presents for R sided flank pain which started this AM. Pt states that it started at 7 AM and it woke her up from her sleep. She states that the pain is currently a 6/10 and does not radiate. Pt states that she is very familiar with this pain and that she had the same pain last year when she had a lithotripsy for nephrolithiasis. She denies taking anything for the pain and attempted to wait a few hours to see if the pain would pass, which did not happen prompting her visit to the ED. At this time she denies any fevers, chills, SOB, cough, chest pain, palpitations, Abd pain, n/v, c/d, or dysuria but she does admit to darker urine. Pmhx: nephrolithiasis w/ lithotripsy, Chrons on mesalamine, Pshx: hysterectomy, bowel resection and appendectomy Meds: Mesalamine All: NKDA Soc: Denies tobacco hx, etoh or illicit drug use Fam hx: Mom: HTN PMD: Dr. Virk Present on Admission - Present on Admission Any Indicators Present on Admission: No Review of Systems - Review of Systems Review of Systems: 12 point ROS reviewed and negative except for noted in HPI above. Past Patient History - Infectious Disease Hx of Infectious Diseases: None - Tetanus Immunizations Tetanus Immunization: Unknown - Past Social History Smoking Status: Never Smoked - CARDIAC Hx Cardiac Disorders: No - PULMONARY Hx Respiratory Disorders: No - NEUROLOGICAL Hx Neurological Disorder: No - HEENT Hx HEENT Problems: No - RENAL Hx Chronic Kidney Disease: Yes Hx Kidney Stones: Yes Hx Neurogenic Bladder: Yes - ENDOCRINE/METABOLIC Hx Endocrine Disorders: No - HEMATOLOGICAL/ONCOLOGICAL Hx Blood Transfusions: No - INTEGUMENTARY Hx Dermatological Problems: No - MUSCULOSKELETAL/RHEUMATOLOGICAL Hx Musculoskeletal Disorders: No Hx Falls: No - GASTROINTESTINAL Hx Gastrointestinal Disorders: Yes Hx Crohn's Disease: Yes - GENITOURINARY/GYNECOLOGICAL Hx Genitourinary Disorders: No - PSYCHIATRIC Hx Psychophysiologic Disorder: No Hx Substance Use: No - SURGICAL HISTORY Hx Appendectomy: Yes Hx Cholecystectomy: Yes Hx Hysterectomy: Yes Other/Comment: Small bowel resection - ANESTHESIA Hx Anesthesia Reactions: No Hx Malignant Hyperthermia: No Meds Allergies/Adverse Reactions: Allergies Allergy/AdvReac Type Severity Reaction Status Date / Time No Known Allergies Allergy Verified 07/23/18 12:38 Physical Exam - Constitutional Appears: Well, Non-toxic, No Acute Distress - Head Exam Head Exam: ATRAUMATIC, NORMAL INSPECTION, NORMOCEPHALIC - Eye Exam Eye Exam: EOMI, Normal appearance, PERRL - Respiratory Exam Respiratory Exam: Clear to Auscultation Bilateral, NORMAL BREATHING PATTERN. absent: Accessory Muscle Use, Rales, Rhonchi, Wheezes, Respiratory Distress, Stridor - Cardiovascular Exam Cardiovascular Exam: RRR, +S1, +S2. absent: Gallop, Rubs - GI/Abdominal Exam GI & Abdominal Exam: Normal Bowel Sounds, Soft. absent: Distended, Firm, Guarding, Tenderness - Extremities Exam Extremities exam: Positive for: normal capillary refill, normal inspection, pedal pulses present - Back Exam Back exam: NORMAL INSPECTION. absent: CVA tenderness (L), CVA tenderness (R) - Neurological Exam Neurological exam: Alert, Oriented x3 - Psychiatric Exam Psychiatric exam: Normal Affect, Normal Mood - Skin Skin Exam: Dry, Normal Color, Warm Results - Vital Signs Recent Vital Signs: Last Vital Signs Temp 97.8 F 07/23/18 12:35 Pulse 86 07/23/18 12:35 Resp 18 07/23/18 12:35 BP 153/103 H 07/23/18 12:35 Pulse Ox 97 07/23/18 12:35 - Labs Result Diagrams: 07/23/18 13:00 07/23/18 13:00 Labs: Laboratory Results - last 24 hr 07/23/18 07/23/18 07/23/18 13:00 13:00 13:00 WBC 9.6 RBC 5.89 Hgb 10.7 L Hct 33.6 L MCV 57.0 L MCH 18.2 L MCHC 31.8 RDW 16.9 H Plt Count 151 Neut % (Auto) 62.3 Lymph % (Auto) 29.4 [place] % (Auto) 6.4 H Eos % (Auto) 1.4 L Baso % (Auto) 0.5 Lymph # (Auto) 2.8 [place] # (Auto) 0.6 Eos # (Auto) 0.1 Baso # (Auto) 0.05 Absolute Neuts (auto) 5.97 Sodium 140 Potassium 3.9 Chloride 107 Carbon Dioxide 25 Anion Gap 12 BUN 10 Creatinine 0.7 Est GFR ( Amer) > 60 Est GFR (Non-Af Amer) > 60 Random Glucose 99 Calcium 9.1 Total Bilirubin 1.2 AST 55 H ALT 38 Alkaline Phosphatase 112 Total Protein 8.2 Albumin 4.1 Globulin 4.1 Albumin/Globulin Ratio 1.0 L Lipase 115 Urine Color Yellow Urine Appearance Clear Urine pH 6.0 Ur Specific [place] 1.025 Urine Protein Trace H Urine Glucose (UA) Negative Urine Ketones Negative Urine Blood Large H Urine Nitrate Negative Urine Bilirubin Negative Urine Urobilinogen 0.2 Ur Leukocyte Esterase Small H Urine RBC 25 - 30 H Urine WBC 10 - 15 H Ur Epithelial Cells 4 - 5 Amorphous Sediment Few Urine Bacteria Many Waxy Casts 0-1 Assessment & Plan - Assessment and Plan (Free Text) Assessment: Pt is a 58 yo F with pmhx of nephrolithiasis w/ lithotripsy, Chrons on mesalamine, hysterectomy, bowel resection and appendectomy who presents for R sided flank pain which started this AM. CTAP showed a 10mm x 6mm. Plan: Nephrolithiasis: - CTAP: 10x6mm stone in R renal pelvis causing mild hydronephrosis. - IVF: NS @ 250cc/hr - Toradol 30 q6 PRN - Zofran q6 PRN for nausea - Rocephin - f/u urine cx - will d/c rocephin if cx is negative - Urology consult: Dr. Ding Hx of Chrons: - Cont home mesalamine Ppx: DVT: Lovenox 40 sc qd Case seen and discussed with Dr. Latonya Solorio, PGY-1 <Mariola Hanks - Last Filed: 07/23/18 18:36> Results - Vital Signs Recent Vital Signs: Last Vital Signs Temp 97.6 F 07/23/18 16:42 Pulse 68 07/23/18 16:42 Resp 20 07/23/18 17:29 BP 135/62 07/23/18 16:42 Pulse Ox 98 07/23/18 16:42 - Labs Result Diagrams: 07/23/18 13:00 07/23/18 13:00 Labs: Laboratory Results - last 24 hr 07/23/18 07/23/18 07/23/18 13:00 13:00 13:00 WBC 9.6 RBC 5.89 Hgb 10.7 L Hct 33.6 L MCV 57.0 L MCH 18.2 L MCHC 31.8 RDW 16.9 H Plt Count 151 Neut % (Auto) 62.3 Lymph % (Auto) 29.4 [place] % (Auto) 6.4 H Eos % (Auto) 1.4 L Baso % (Auto) 0.5 Lymph # (Auto) 2.8 [place] # (Auto) 0.6 Eos # (Auto) 0.1 Baso # (Auto) 0.05 Absolute Neuts (auto) 5.97 Sodium 140 Potassium 3.9 Chloride 107 Carbon Dioxide 25 Anion Gap 12 BUN 10 Creatinine 0.7 Est GFR ( Amer) > 60 Est GFR (Non-Af Amer) > 60 Random Glucose 99 Calcium 9.1 Total Bilirubin 1.2 AST 55 H ALT 38 Alkaline Phosphatase 112 Total Protein 8.2 Albumin 4.1 Globulin 4.1 Albumin/Globulin Ratio 1.0 L Lipase 115 Urine Color Yellow Urine Appearance Clear Urine pH 6.0 Ur Specific [place] 1.025 Urine Protein Trace H Urine Glucose (UA) Negative Urine Ketones Negative Urine Blood Large H Urine Nitrate Negative Urine Bilirubin Negative Urine Urobilinogen 0.2 Ur Leukocyte Esterase Small H Urine RBC 25 - 30 H Urine WBC 10 - 15 H Ur Epithelial Cells 4 - 5 Amorphous Sediment Few Urine Bacteria Many Waxy Casts 0-1 Attending/Attestation - Attestation I have personally seen and examined this patient.: Yes I have fully participated in the care of the patient.: Yes I have reviewed all pertinent clinical information: Yes Notes (Text): 07/23/18 18:32 Medical record note made by the resident after discussion with my direction and input after the patient was personally seen and examined by me. I have reviewed the chart and agree that the record accurately reflects by personal performance of the history, physical exam, data review, and medical decision-making, in the course for the patient. I have also personally directed the plan of care. 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 CT scan of abdomen and Pelvis showed a 10mm x 6mm stone in right renal pelvis with mild hydronephrosis. Agreed with IV fluid, Pain medication and IV ceftrixone for possible UTI. We get Urology consult. Management plan was discussed in detail with patient. Education was provided
[2018-07-23] MEDS: Mesalamine ER Cap 500 MG PO SCH ×2 (17:33→21:13)
[2018-07-23 18:05] VITALS: BMI 40.7
[2018-07-23 21:07] VITALS: O2SAT 95
[2018-07-24 07:34] LABS: BASO # 0.02 K/mm3 (0.0-2.0); BASO % 0.3 % (0.0-3.0); EOS # 0.2 (0.0-0.7); EOS % 2.3 % (1.5-5.0); HEMOGLOBIN 9.3 g/dL (12.0-16.0); LYMPH # 2.1 (1.2-3.4); LYMPH % 31.5 % (22.0-35.0); MEAN CELL VOLUME 56.8 fl (80.0-105.0); MEAN CORPUSCULAR HEMOGLOBIN 17.4 pg (25.0-35.0); MEAN CORPUSCULAR HGB CONC 30.7 g/dl (31.0-37.0); MONO # 0.4 (0.1-0.6); MONO % 6.1 % (1.0-6.0); PLATELET COUNT 129 10^3/uL (120.0-450.0); RBC 5.33 10^6/uL (3.5-6.1); WHITE BLOOD COUNT 6.6 10^3/uL (4.5-11.0)
[2018-07-24 07:52] LABS: ALBUMIN 3.5 g/dL (3.0-4.8); ALT/SGPT 38 U/L (7-56); AST/SGOT 45 U/L (14-36); BLOOD UREA NITROGEN 9 mg/dL (7-21); CALCIUM 8.5 mg/dL (8.4-10.5); GFR NON-AFRICAN AMERICAN > 60
[2018-07-24] MEDS: Mesalamine ER Cap 500 MG PO SCH (09:14)
[2018-07-24] MEDS ORDERED: cefTRIAXone 1 gm 1 GM/100 ML BAG IVPB SCH (10:00)
[2018-07-24] MEDS ORDERED: Enoxaparin 40 mg Syringe SC SCH (10:00)
[2018-07-24 10:34] VITALS: BP 110/68; PULSE 76; RESP 20; TEMP 97.7
--- NOTE | 2018-07-24 11:31 | CP.PCM.PN ---
Objective - Vital Signs/Intake and Output Vital Signs (last 24 hours): Temp Pulse Resp BP Pulse Ox 97.7 F 76 20 110/68 95 07/24/18 06:00 07/24/18 06:00 07/24/18 06:00 07/24/18 06:00 07/24/18 06:00 Intake and Output: 07/24/18 07/24/18 06:59 18:59 Intake Total 240 122 Output Total 201 Balance 39 122 - Medications Medications: Current Medications Enoxaparin Sodium (Lovenox) 40 mg SC DAILY COUNTS INCLUDE 234 BEDS AT THE [facility]; Protocol Last Admin: 07/24/18 09:14 Dose: 40 mg Sodium Chloride (Sodium Chloride 0.9%) 1,000 mls @ 250 mls/hr IV .Q4H COUNTS INCLUDE 234 BEDS AT THE [facility] Last Admin: 07/23/18 22:49 Dose: Not Given Ceftriaxone Sodium (Rocephin 1 Gram Ivpb) 1 gm in 100 mls @ 100 mls/hr IVPB DAILY COUNTS INCLUDE 234 BEDS AT THE [facility]; Protocol Last Admin: 07/24/18 09:15 Dose: 100 mls/hr Ketorolac Tromethamine (Toradol) 30 mg IVP Q6 PRN PRN Reason: Pain, moderate (4-7) Mesalamine (Pentasa) 500 mg PO QID COUNTS INCLUDE 234 BEDS AT THE [facility] Last Admin: 07/24/18 09:14 Dose: 500 mg Ondansetron HCl (Zofran Inj) 4 mg IVP Q6H PRN PRN Reason: Nausea/Vomiting - Labs Labs: 07/24/18 07:00 07/24/18 07:00
--- NOTE | 2018-07-24 13:29 | CP.PCM.DIS ---
Provider - Provider Date of Admission: 07/23/18 15:21 Attending physician: Mariola Hanks MD Primary care physician: Moises Virk MD Consults: 07/23/18 15:28 Consult [Physician Consult] Routine Comment: Consulting Provider: Moy Retana Consulting Physician: Moy Retana Reason for Consult: kidney stone Time Spent in preparation of Discharge (in minutes): 45 Diagnosis - Discharge Diagnosis (1) Renal stone Status: Acute (2) Hydronephrosis Status: Acute Hospital Course - Lab Results Lab Results: Most Recent Lab Values WBC 6.6 10^3/uL (4.5-11.0) D 07/24/18 07:00 RBC 5.33 10^6/uL (3.5-6.1) 07/24/18 07:00 Hgb 9.3 g/dL (12.0-16.0) L 07/24/18 07:00 Hct 30.3 % (36.0-48.0) L 07/24/18 07:00 MCV 56.8 fl (80.0-105.0) L 07/24/18 07:00 MCH 17.4 pg (25.0-35.0) L 07/24/18 07:00 MCHC 30.7 g/dl (31.0-37.0) L 07/24/18 07:00 RDW 17.0 % (11.5-14.5) H 07/24/18 07:00 Plt Count 129 10^3/uL (120.0-450.0) 07/24/18 07:00 Neut % (Auto) 59.8 % (50.0-68.0) 07/24/18 07:00 Lymph % (Auto) 31.5 % (22.0-35.0) 07/24/18 07:00 [place] % (Auto) 6.1 % (1.0-6.0) H 07/24/18 07:00 Eos % (Auto) 2.3 % (1.5-5.0) 07/24/18 07:00 Baso % (Auto) 0.3 % (0.0-3.0) 07/24/18 07:00 Lymph # (Auto) 2.1 (1.2-3.4) 07/24/18 07:00 [place] # (Auto) 0.4 (0.1-0.6) 07/24/18 07:00 Eos # (Auto) 0.2 (0.0-0.7) 07/24/18 07:00 Baso # (Auto) 0.02 K/mm3 (0.0-2.0) 07/24/18 07:00 Absolute Neuts (auto) 3.92 (1.4-6.5) 07/24/18 07:00 Sodium 140 mmol/L (132-148) 07/24/18 07:00 Potassium 3.6 mmol/L (3.6-5.0) 07/24/18 07:00 Chloride 108 mmol/L (98-107) H 07/24/18 07:00 Carbon Dioxide 24 mmol/L (21-33) 07/24/18 07:00 Anion Gap 11 (10-20) 07/24/18 07:00 BUN 9 mg/dL (7-21) 07/24/18 07:00 Creatinine 0.7 mg/dl (0.7-1.2) 07/24/18 07:00 Est GFR ( Amer) > 60 07/24/18 07:00 Est GFR (Non-Af Amer) > 60 07/24/18 07:00 Random Glucose 100 mg/dL (70-110) 07/24/18 07:00 Calcium 8.5 mg/dL (8.4-10.5) 07/24/18 07:00 Total Bilirubin 0.9 mg/dL (0.2-1.3) 07/24/18 07:00 AST 45 U/L (14-36) H 07/24/18 07:00 ALT 38 U/L (7-56) 07/24/18 07:00 Alkaline Phosphatase 95 U/L (38-126) 07/24/18 07:00 Total Protein 7.2 g/dL (5.8-8.3) 07/24/18 07:00 Albumin 3.5 g/dL (3.0-4.8) 07/24/18 07:00 Globulin 3.7 gm/dL 07/24/18 07:00 Albumin/Globulin Ratio 1.0 (1.1-1.8) L 07/24/18 07:00 Lipase 115 U/L (23-300) 07/23/18 13:00 Urine Color Yellow (YELLOW) 07/23/18 13:00 Urine Appearance Clear (CLEAR) 07/23/18 13:00 Urine pH 6.0 (4.7-8.0) 07/23/18 13:00 Ur Specific [place] 1.025 (1.005-1.035) 07/23/18 13:00 Urine Protein Trace mg/dL (<30 mg/dL) H 07/23/18 13:00 Urine Glucose (UA) Negative mg/dL (NEGATIVE) 07/23/18 13:00 Urine Ketones Negative mg/dL (NEGATIVE) 07/23/18 13:00 Urine Blood Large (NEGATIVE) H 07/23/18 13:00 Urine Nitrate Negative (NEGATIVE) 07/23/18 13:00 Urine Bilirubin Negative (NEGATIVE) 07/23/18 13:00 Urine Urobilinogen 0.2 E.U./dL (<1 E.U./dL) 07/23/18 13:00 Ur Leukocyte Esterase Small Jovon/uL (NEGATIVE) H 07/23/18 13:00 Urine RBC 25 - 30 /hpf (0-2) H 07/23/18 13:00 Urine WBC 10 - 15 /hpf (0-6) H 07/23/18 13:00 Ur Epithelial Cells 4 - 5 /hpf (0-5) 07/23/18 13:00 Amorphous Sediment Few /hpf (NONE) 07/23/18 13:00 Urine Bacteria Many /hpf (NONE) 07/23/18 13:00 Waxy Casts 0-1 /hpf (NONE) 07/23/18 13:00 - Hospital Course Hospital Course: Upon Admission: Pt is a 58 yo F with pmhx of nephrolithiasis w/ lithotripsy, Chrons on mesalamine, hysterectomy, bowel resection and appendectomy who presents for R sided flank pain which started this AM. Pt states that it started at 7 AM and it woke her up from her sleep. She states that the pain is currently a 6/10 and does not radiate. Pt states that she is very familiar with this pain and that she had the same pain last year when she had a lithotripsy for nephrolithiasis. She denies taking anything for the pain and attempted to wait a few hours to see if the pain would pass, which did not happen prompting her visit to the ED. At this time she denies any fevers, chills, SOB, cough, chest pain, palpitations, Abd pain, n/v, c/d, or dysuria but she does admit to darker urine. Hospital Course: Pt was being worked up for nephrolithiasis. In the ED CTAP was done which showed that the pt had a 10x6mm obstructive stone in R renal pelvis causing mild hydronephrosis. Pt was started on IVF @ 250cc/hr, toradol 30 q6 PRN and Zofran for nausea. Urologist Dr. Retana was consulted to evaluate the pt. Rocephin was started as there was questionable enhancement on CT. Pt also has a hx of Chrons and was restarted on home mesalamine. Dr. Retana came in to evaluate the pt and stated that the pt could be seen as an outpt for lithotripsy next week. Recommended continuation of abx and percocet for a few days until the pt can be seen in the clinic. Pt was medically optimized for discharge and the pt was informed about the plan for discharge and follow up. Pt expressed understanding and agreement of the medical plan for discharge. All of the pts questions and concerns were addressed prior to d/c. The pt was given the prescriptions as recommended by urology. Discharge Exam - Head Exam Head Exam: ATRAUMATIC, NORMAL INSPECTION, NORMOCEPHALIC - Eye Exam Eye Exam: EOMI, Normal appearance, PERRL - Respiratory Exam Respiratory Exam: Clear to PA & Lateral, NORMAL BREATHING PATTERN, UNREMARKABLE. absent: Accessory Muscle Use, Decreased Breath Sounds, Rales, Rhonchi, Wheezes, Respiratory Distress, Stridor - Cardiovascular Exam Cardiovascular Exam: RRR, +S1, +S2. absent: Gallop, Rubs - GI/Abdominal Exam GI & Abdominal Exam: Normal Bowel Sounds, Soft, Unremarkable. absent: Firm, Guarding, Hernia, Rigid, Tenderness - Extremities Exam Extremities exam: normal capillary refill, pedal pulses present - Back Exam Back exam: NORMAL INSPECTION. absent: CVA tenderness (L), CVA tenderness (R) - Neurological Exam Neurological exam: Alert, Oriented x3 - Psychiatric Exam Psychiatric exam: Normal Affect, Normal Mood - Skin Skin Exam: Dry, Normal Color, Warm Discharge Plan - Discharge Medications Prescriptions: Ciprofloxacin [Cipro] 500 mg PO BID 4 Days #8 tab Ibuprofen [Motrin] 400 mg PO Q6 PRN 7 Days #28 tab PRN Reason: Pain, Moderate (4-7) oxyCODONE/Acetaminophen [Percocet 5/325 mg Tab] 1 ea PO Q6 PRN #8 tab PRN Reason: Pain, Severe (8-10) - Follow Up Plan Condition: STABLE Disposition: HOME/ ROUTINE Instructions: Kidney Stones in Adults, Crohn's Disease in Adults, Acute Abdomen (Belly Pain) Additional Instructions: FOLLOW UP WITH DR RETANA CALL AND MAKE APPOINTMENT - Please also follow up with your primary care doctor within 1 week of discharge - You have been given Motrin 400mg which you can take every 6 hours as needed for moderate pain. You will also be provided with a prescription for percocet which you can also take as needed every 6 hours but for severe pain. - You have been given an antibiotic: Ciprofloxacin, please take this medication twice a day for the next 4 days. - Please drink plenty of fluids - If you have any returning or new symptoms please return to the nearest emergency department as soon as possible. Referrals: Moises Virk MD [Primary Care Provider] -
--- NOTE | 2018-07-24 13:35 | CON ---
GENITOURINARY CONSULTATION DATE: 07/24/2018 CHIEF COMPLAINT: Right flank pain. HISTORY OF PRESENT ILLNESS: This is a 58-year-old female with a history of kidney stones, inflammatory bowel disease, who presented with right-sided flank pain, which started 1 day prior to admission. The pain became intense. She was having some nausea and vomiting. She denies any dysuria, urinary frequency, urgency, or gross hematuria. She presented to the emergency room. A CT scan was done, which showed 2 large renal calculi with some mild hydronephrosis of the right kidney. I spoke to the emergency room physician and told him that the patient could likely go home from my standpoint, as she had no evidence of infection or sepsis. However, the patient was admitted for overnight observation. The patient received Toradol in the emergency room. She has not had any pain since the Toradol injection. PAST MEDICAL HISTORY: Kidney stones and Crohn disease. MEDICATIONS: Include mesalamine at home, Lovenox, Rocephin, Toradol, and Zofran. ALLERGIES: NO KNOWN DRUG ALLERGIES. FAMILY HISTORY: Noncontributory for this admission. SOCIAL HISTORY: Negative for smoking or EtOH use. REVIEW OF SYSTEMS: A 12 point review of systems was obtained. Currently all systems are negative. Positive as per the HPI from renal colic, which has now resolved. PHYSICAL EXAMINATION: GENERAL: The patient is awake and alert. She is in no acute distress. She has been afebrile. VITAL SIGNS: Temperature 97.7, BP 110/68, respirations 20. NECK: Supple. There is no adenopathy. CHEST: Reveals normal inspiratory effort. CARDIAC: Shows positive S1, S2. ABDOMEN: There is mild peripheral edema noted on abdominal exam. The abdomen is obese, soft, nontender, nondistended. There is no hepatosplenomegaly or costovertebral angle tenderness. EXTREMITIES: There is no cyanosis. There is positive edema of the lower extremities. LABORATORY EXAM: WBC count 6.6. GFR greater than 60. Urinalysis showed 25-30 rbc's, 10-15 wbc's, negative for nitrites. On radiologic exam, the patient had a CT scan of the abdomen and pelvis done yesterday which showed 10 x 6 mm right renal pelvic calculus with mild right hydronephrosis. There is a 9 x 8 non-obstructing right lower pole calculus. There are punctate nonobstructive left upper pole calculi. There are nonspecific subcentimeter right retroperitoneal and aortocaval lymph nodes. IMPRESSION AND PLAN: This is a 58-year-old female with renal calculi. The patient has no evidence of infection or sepsis. Her renal colic has resolved. I discussed plan with the patient is that she will need a extracorporeal shock wave lithotripsy. This is to be arranged as an outpatient. I offered the patient a placement of a stent, which she does not want to have done if she can have the lithotripsy without it. The patient unfortunately has received Toradol, so the timing of the extracorporeal shock wave lithotripsy will be delayed. She also will likely need to hold her Pentasa prior to this procedure. However, as the patient has no emergent indication for surgery, I think she can be discharged from a urologic standpoint if she is medically okay and we can arrange for treatment of the stone as an outpatient. Unclear why the patient received Lovenox and I will need to discuss this with the medical team. The patient denies any need for anticoagulation, but I will need to discuss this with her medical attending. Okay for discharge from a urologic standpoint if she is medically okay and we can again arrange treatment of the stone as an outpatient. Moy Ding MD
== END 2018-07-24 17:14 | disposition home or self-care (01) ==
LOC: ED 12:26 → ERH 15:21 → 5RNO 16:50
PROVIDERS: ADMIT Internal Medicine; ATTEND Internal Medicine
DX: N13.2 Hydronephrosis with renal and ureteral calculous obstruction (principal); K50.90 Crohn's disease, unspecified, without complications; N31.9 Neuromuscular dysfunction of bladder, unspecified; Z87.442 Personal history of urinary calculi; Z82.49 Family history of ischemic heart disease and other diseases of the circulatory system
CPT/HCPCS: 36415; 74177; 80053; 81001; 83690; 85025; 87086; 96361; 96365; 96366; 96372; 96375; 99284; G0378; J0696; J1650; J1885; J7030; Q9967